=== PATIENT | male | born 1985 | race Caucasian/White ===

== ENCOUNTER 2022-05-11 07:25 | Emergency (ER) | payer MEDICAID ==
[~2022-05-11] VITALS: Ht 188 cm; Wt 95.3 kg
[2022-05-11] MEDS ORDERED: ONDANSETRON HCL INJ 2MG/ML 2ML 2 MG/ML VIAL IV STA (07:35)
[2022-05-11] MEDS ORDERED: SODIUM CHLORIDE FLUSH 10 ML SYR IV PRN (07:45)
[2022-05-11] MEDS ORDERED: ASPIRIN 325 MG TAB PO ONE (07:45)
[2022-05-11] MEDS ORDERED: SODIUM CHLORIDE 0.9% 1000ML 1,000 ML IV SCH ×2 (07:45→09:15)
[2022-05-11 08:08] LABS: BASOPHILS # (AUTO) 0.1 (0.0-0.1); BASOPHILS % 0.6 % (0.0-1.0); HEMATOCRIT 38.1 % (38.2-49.6); HEMOGLOBIN 13.1 g/dL (14.0-18.0); LYMPHOCYTES # (AUTO) 2.9 (1.0-3.2); LYMPHOCYTES % 32.8 % (18.0-39.1); MEAN CORPUSCULAR HEMOGLOBIN 32.8 pg (28-32); MEAN CORPUSCULAR HGB CONC 34.4 g/dL (31-35); MEAN CORPUSCULAR VOLUME 95.3 fL (81-99); MONOCYTES # (AUTO) 1.3 (0.2-0.8); MONOCYTES % 14.8 % (4.4-11.3); NEUTROPHILS # (AUTO) 4.5 (2.1-6.9); NEUTROPHILS % 51.6 % (38.7-80.0); PLATELET COUNT 151 x10e3/uL (140-360); RED CELL DISTRIBUTION WIDTH 13.7 % (11.7-14.4)
[2022-05-11 08:17] LABS: PROTHROMBIN TIME 14.1 seconds (11.9-14.5)
[2022-05-11 08:18] LABS: PARTIAL THROMBOPLASTIN TIME 29.7 seconds (23.8-35.5)
[2022-05-11 08:23] LABS: ALANINE AMINOTRANSFERASE 36 IU/L (0-55); ALBUMIN 4.3 g/dL (3.5-5.0); ALBUMIN/GLOBULIN RATIO 0.9 (0.8-2.0); ALKALINE PHOSPHATASE 94 IU/L (40-150); ANION GAP 26.8 mmol/L (8-16); BLOOD UREA NITROGEN 9 mg/dL (7-26); BUN/CREATININE RATIO 5 (6-25); CALCIUM 9.1 mg/dL (8.4-10.2); CARBON DIOXIDE 19 mmol/L (22-29); CHLORIDE 96 mmol/L (98-107); CREATININE, SERUM 1.91 mg/dL (0.72-1.25); GLUCOSE 118 mg/dL (74-118); SODIUM 139 mmol/L (136-145)
[2022-05-11 08:31] LABS: POTASSIUM 2.8 mmol/L (3.5-5.1)
[2022-05-11] MEDS ORDERED: POTASSIUM CHLORIDE 20 MEQ TAB CR PO STA (08:31)
[2022-05-11] MEDS ORDERED: IOPAMIDOL 370 MG/ML 100 ML INFUS..BTL INJ ONE (09:01)
[2022-05-11 11:02] LABS: AMPHETAMINES SCREEN,URINE POSITIVE (NEGATIVE); BENZODIAZEPINES SCREEN,URINE NEGATIVE (NEGATIVE); PHENCYCLIDINE SCREEN,URINE NEGATIVE (NEGATIVE)
[2022-05-11 11:12] LABS: COLOR,URINE ORANGE (YELLOW)
[2022-05-11 11:13] LABS: CLARITY,URINE CLEAR (CLEAR); KETONES,URINE TRACE (NEGATIVE); LEUKOCYTE ESTERASE ,URINE NEGATIVE (NEGATIVE); NITRITE,URINE POSITIVE (NEGATIVE); PROTEIN,URINE DIPSTICK 2+ (NEGATIVE)
[2022-05-11 11:17] LABS: EPITHELIAL CELLS,URINE RARE /LPF
[2022-05-11 11:18] LABS: BACTERIA,URINE FEW /HPF; RBC,URINE 0-5 /HPF (0-5)
[2022-05-11] MEDS ORDERED: SODIUM CHLORIDE 0.9% INJ 500 ML BAG ONE (13:34)
[2022-05-11] MEDS ORDERED: CALCIUM CHLORIDE 10% 1.36 MEQ/ML 10ML SYR IV ONE (13:34)
[2022-05-11] MEDS ORDERED: SODIUM CHLORIDE 0.9% INJ 250 ML BAG ONE (13:34)
[2022-05-11] MEDS ORDERED: DEXTROSE 50% SYRINGE 50 ML IV ONE (13:34)
[2022-05-11] MEDS ORDERED: SODIUM CHLORIDE 0.9% 1000 ML BAG ONE (13:34)
[2022-05-11] MEDS ORDERED: EPINEPHRINE HCL SYRINGE ONE (13:36)
[2022-05-11] MEDS ORDERED: SODIUM BICARBONATE 8.4% INJ 50 ML SYR ONE (13:36)
[2022-05-11] MEDS ORDERED: AMIODARONE HCL INJ 150MG/3ML ONE (13:36)
[2022-05-11] MEDS ORDERED: NALOXONE HCL INJ 0.4 MG/ML AMP ONE (13:36)
== END 2022-05-11 17:07 | disposition expired ==
LOC: ER 07:30
DX: I46.9 Cardiac arrest, cause unspecified (principal); R07.9 Chest pain, unspecified; J20.9 Acute bronchitis, unspecified; N17.9 Acute kidney failure, unspecified; E87.6 Hypokalemia; E86.0 Dehydration; R11.2 Nausea with vomiting, unspecified; E86.9 Volume depletion, unspecified; I10 Essential (primary) hypertension; K76.0 Fatty (change of) liver, not elsewhere classified; F10.10 Alcohol abuse, uncomplicated; F15.10 Other stimulant abuse, uncomplicated; Z20.822 Contact with and (suspected) exposure to COVID-19; F17.210 Nicotine dependence, cigarettes, uncomplicated
CPT/HCPCS: 31500; 36415; 71045; 71260; 80053; 80307; 80320; 81001; 82948; 84484; 85025; 85610; 85730; 87400; 92950; 93005; 94760; 94799; 99284; J0171; J0282; J2310; J2405; J7030; J7040; J7050; J7799; Q9967; U0002